=== PATIENT | female | born 1970 | race Caucasian/White ===

== ENCOUNTER 2017-03-26 12:29 | Emergency (ER) | payer BC, OTHER ==
[~2017-03-26] VITALS: Ht 157.5 cm; Wt 75.3 kg
[2017-03-26] MEDS ORDERED: IBUPROFEN 800 MG TAB PO ONE (12:45)
[2017-03-26 13:21] VITALS: BP 96/71
== END 2017-03-26 14:03 | disposition home or self-care (01) ==
LOC: ER 12:29
DX: S56.912A Strain of unspecified muscles, fascia and tendons at forearm level, left arm, initial encounter (principal); W22.8XXA Striking against or struck by other objects, initial encounter; Y93.89 Activity, other specified; Y99.8 Other external cause status; Y92.89 Other specified places as the place of occurrence of the external cause
CPT/HCPCS: 73110